=== PATIENT | female | born 1995 | race Caucasian/White ===

== ENCOUNTER 2016-11-07 15:41 | Emergency (ER) | payer SELFPAY ==
[~2016-11-07] VITALS: Ht 160 cm; Wt 55.0 kg
[2016-11-07 15:46] VITALS: Ht 160 cm; Wt 55.0 kg
[2016-11-07] MEDS ORDERED: CEFTRIAXONE 250 MG INJ IM ONE (17:00)
[2016-11-07 17:49] LABS: ADD UMIC YES; URINE BILIRUBIN (Dip) NEGATIVE (NEGATIVE); URINE BLOOD (Dip) TRACE (NEGATIVE); URINE COLOR LT. YELLOW (YELLOW); URINE GLUCOSE (Dip) NEGATIVE (NEGATIVE); URINE KETONES (Dip) NEGATIVE (NEGATIVE); URINE LEUKOCYTE ESTERASE (Dip) NEGATIVE (NEGATIVE); URINE NITRITE (Dip) NEGATIVE (NEGATIVE); URINE TOTAL PROTEIN (Dip) NEGATIVE (NEGATIVE); URINE UROBILINOGEN (Dip) 0.2 E.U./dL (0.1-1.0)
[2016-11-07 17:56] LABS: BACTERIA,URINE FEW; MUCUS,URINE MODERATE; SQUAMOUS EPITHELIAL CELL,UR FEW; URINE RBCS 0-2 /HPF (0)
[2016-11-07] MEDS ORDERED: LIDOCAINE 2% VISC 15 ML CUP PO ONE (18:00)
[2016-11-07] MEDS ORDERED: LIDO5OI35 TP (18:04)
[2016-11-07] MEDS ORDERED: DOXY100T20 PO (18:06)
[2016-11-07] MEDS ORDERED: METR500T PO (18:06)
--- NOTE | 2016-11-07 18:21 | ERD ---
ER Documentation Chief Complaint Date/Time DATE: 11/07/16 TIME: 18:08 Chief Complaint VAGINAL PAIN WITH ODOR AND DISCHARGE, [employer] HPI 21-year-old female patient who is currently working in the adult porn industry presents to the ED complaining of vaginal pain that started 3 days ago. Reports that she is sexually active and the last time she had sexual intercourse was 4 days ago. States that she also tried this new lubricant called demetriorichard annette 4 days ago and feels like the outside of her vagina hurts. Reports it feels like an infection. Reports it is itchy. States that she is a G1 A1. She is currently taking Loestrin. States that she has not had her menses for 1 year but denies being . States that she gets tested every 12 days for HIV, hepatitis and STDs. States that she went to [place] and had an ultrasound done which was negative for an ovarian abscess or torsion. States that the work up was negative but she is still having pain. Denies any abdominal pain, nausea, vomiting, vaginal bleeding, chest pain, shortness of breath, melena, hematemesis, bloody stools. ROS All systems reviewed and are negative except as per history of present illness. Medications Home Meds Active Scripts Doxycycline Hyclate* (Doxycycline Hyclate*) 100 Mg Tablet.dr, 100 MG PO BID for 14 Days, TAB Prov:ORION TANNER PA-C 11/07/16 Metronidazole* (Flagyl*) 500 Mg Tablet, 500 MG PO BID for 14 Days, TAB Prov:ORION TANNER PA-C 11/07/16 Lidocaine (LIDOCAINE) 35.44 Gm Oint...g., 35.44 GM TP ONCE, #1 TUB Prov:ORION TANNER PA-C 11/07/16 Allergies Allergies: Uncoded Allergies: PCN (Allergy, Unknown, 11/07/16) SULFA (Allergy, Unknown, 11/07/16) PMhx/Soc Medical and Surgical Hx: pt denies Medical Hx, pt denies Surgical Hx Hx Alcohol Use: No Hx Substance Use: No Hx Tobacco Use: No Physical Exam Vitals Vital Signs Date Time Temp Pulse Resp B/P Pulse Ox O2 Delivery O2 Flow Rate FiO2 11/07/16 15:46 97.8 100 18 129/82 100 Physical Exam Const: Cvq-lum-jwbaqqlyn, well-nourished. In no acute distress. Head: Atraumatic, normocephalic Eyes: Normal Conjunctiva without injection. No purulent discharge. ENT: Normal external ear, nose. Moist oropharynx without tonsillar exudates. Non -erythematous pharynx. Uvula midline. No drooling. No trismus. Neck: No cervical midline tenderness. Full range of motion. No meningismus. No cervical lymphadenopathy. No JVD. Resp: Clear to auscultation bilaterally. No wheezing, rhonchi, rales, or crackles. No accessory muscle use. No retractions. Cardio: Regular rate and rhythm. No murmurs, rubs or gallops. Abd: Soft, nontender, non distended. Normal bowel sounds. No palpable masses. No rebound tenderness. No guarding. Negative McBurney's point. Negative psoas sign. Negative obturator sign. : See exam in MDM. Skin: No petechiae or rashes Back: No midline tenderness. No CVA tenderness. Ext: No cyanosis, or edema. Neur: Awake and alert. Normal gait. Normal coordination. Psych: Normal Mood and Affect Results 24 hrs Laboratory Tests Test 11/07/16 17:00 Urine Color LT. YELLOW Urine Clarity CLEAR Urine pH 5.5 Urine Specific [place] >=1.030 Urine Ketones NEGATIVE Urine Nitrite NEGATIVE Urine Bilirubin NEGATIVE Urine Urobilinogen 0.2 E.U./dL Urine Leukocyte Esterase NEGATIVE Urine Microscopic RBC 0-2/HPF Urine Microscopic WBC 0-2/HPF Urine Squamous Epithelial Cells FEW Urine Bacteria FEW Urine Mucus MODERATE Urine Hemoglobin TRACE Urine Glucose NEGATIVE% Urine Total Protein NEGATIVE Current Medications Medications (Trade) Dose Ordered Sig/Sandeep Route PRN Reason Start Time Stop Time Status Last Admin Dose Admin Ceftriaxone Sodium (Rocephin) 250 mg ONCE ONCE IM 11/07/16 17:00 11/07/16 17:01 DC 11/07/16 17:03 Lidocaine (Xylocaine (Viscous)) 15 ml ONCE ONCE PO 11/07/16 18:00 11/07/16 18:01 DC Procedures/[facility] This is a 21-year-old female patient who is a G1 A1 presents to the ED complaining of vaginal pain that started 3 days ago. Patient is afebrile and nontoxic-appearing. Patient has normal vital signs. Patient gave consent to do a pelvic exam. Urinalysis is negative for any leukocyte esterase, hematuria , nitrites. Negative urine . Pelvic Exam: Embedded Firmware Engineer present Abdomen: [Nontender] External Genitalia: [1 cm vertical skin tears noted at the Posterior Labial Commissure] Speculum: [Normal vaginal mucosa, whitish cervical discharge noted] Bimanual: [No adnexal masses or tenderness, CMT noted, Chandelier Sign noted] Pending the wet mount, this case has been signed out to my colleague, Kathi Lee PA-C. I instructed patient that the gonorrhea and Chlamydia results would come back in about 2-3 days. Patient states that she would still like to be treated for for possible pelvic inflammatory disease. Patient was treated here in the ED with ceftriaxone 250 mg IM. Patient will also receive outpatient antibiotics. No indication for a pelvic ultrasound at this time as patient already received one at [facility]. Patient states that it was negative for any acute findings. Low suspicion for urinary tract infection, pyelonephritis. Low suspicion for ectopic , sepsis, appendicitis, ovarian torsion, tubo- ovarian abscess, surgical abdomen, or other emergent conditions. Patient was educated that there is a risk for threatened . Discharge medications: Doxycycline, Metronidazole, Lidocaine cream to be applied externally. Follow up with primary care physician in 1-2 days for a referral to [facility]. Strictly instructed patient to avoid sexual intercourse. Strictly instructed patient to avoid the sun while taking Doxycycline and taking alcohol while taking Metronidazole. Instructed patient to return to the ED sooner for any worsening symptoms. Patient's questions were answered. Patient understood and agreed with discharge plan. Patient discharged stable. Departure Diagnosis: Primary Impression: Vaginal pain Additional Impression: Skin tear Patient Instructions: Preventing Vaginitis, What Is Pelvic Inflammatory Disease ? Referrals: COMMUNITY CLINICS YOU HAVE RECEIVED A MEDICAL SCREENING EXAM AND THE RESULTS INDICATE THAT YOU DO NOT HAVE A CONDITION THAT REQUIRES URGENT TREATMENT IN THE EMERGENCY DEPARTMENT. FURTHER EVALUATION AND TREATMENT OF YOUR CONDITION CAN WAIT UNTIL YOU ARE SEEN IN YOUR DOCTORS OFFICE WITHIN THE NEXT 1-2 DAYS. IT IS YOUR RESPONSIBILITY TO MAKE AN APPOINTMENT FOR FOLOW-UP CARE. IF YOU HAVE A PRIMARY DOCTOR --you should call your primary doctor and schedule an appointment IF YOU DO NOT HAVE A PRIMARY DOCTOR YOU CAN CALL OUR PHYSICIAN REFERRAL HOTLINE AT IF YOU CAN NOT AFFORD TO SEE A PHYSICIAN YOU CAN CHOSE FROM THE FOLLOWING [facility] [address] [facility] [address] [facility] [address] [facility] [address] [facility] [phone] [facility]. [facility] [address] [facility]. [facility] YOU HAVE RECEIVED A MEDICAL SCREENING EXAM AND THE RESULTS INDICATE THAT YOU DO NOT HAVE A CONDITION THAT REQUIRES URGENT TREATMENT IN THE EMERGENCY DEPARTMENT. FURTHER EVALUATION AND TREATMENT OF YOUR CONDITION CAN WAIT UNTIL YOU ARE SEEN IN YOUR DOCTORS OFFICE WITHIN THE NEXT 1-2 DAYS. IT IS YOUR RESPONSIBILITY TO MAKE AN APPOINTMENT FOR FOLOW-UP CARE. IF YOU HAVE A PRIMARY DOCTOR --you should call your primary doctor and schedule and appointment IF YOU DO NOT HAVE A PRIMARY DOCTOR YOU CAN CALL OUR PHYSICIAN REFERRAL HOTLINE AT . IF YOU CAN NOT AFFORD TO SEE A PHYSICIAN YOU CAN CHOSE FROM THE FOLLOWING [facility] [address] [place] [address] [facility] [address] [place] [address] [facility] [address] [place] [address] [employer] [facility] [place] [address] [facility] [address] [place], [place] [phone] OFFICE FAX JEANA GONZALES [address] [place], [place] [phone] LEDEZMA HERNDON [address] [place], [place] [phone] DANIELLE CHÁVEZ [address] [facility], [address] [address] [address] [address] [facility] [place], [place] [phone] [facility] [address] [place], [place] [id number] [address] [facility] [id number] - DR FIGUEROA, ELIECER [address], [facility] [phone] FLANAGAN, EITAN [address] [facility]. [address], [facility] [phone] THORNE, [facility] [address] [place] [address] [facility] Hours: 8:00 am - 5:00 pm Additional Instructions: Call your primary care doctor TOMORROW for an appointment during the next 2-3 days for a referral to [facility].See the doctor sooner or return here if your condition worsens before your appointment time. ORION TANNER PA-C November 07, 2016 18:19
[2016-11-07 19:00] VITALS: BP 128/78; PULSE 75; RESP 18; TEMP 97.8
--- NOTE | 2016-11-08 02:12 | EN ---
Date/Time of Note Date/Time of Note DATE: 11/08/16 TIME: 02:11 ER Progress Note This patient was signed out to me by Perri Reese PA-C pending results of a vaginal wet mount. Wet mount shows no evidence of trichomonas, clue cells. There is rare yeast. Low suspicion for Trichomonas, BV. Patient did not want to wait for the results of the wet mount and left prior to receiving her test results. Patient will be treated as previously prescribed by Evelia Reese for PID and BV prophylactically ALAN MCBRIDE PA-C November 08, 2016 02:12
== END 2016-11-07 19:00 | disposition home or self-care (01) ==
LOC: FTE 15:41
DX: R10.2 Pelvic and perineal pain (principal); S31.41XA Laceration without foreign body of vagina and vulva, initial encounter; X58.XXXA Exposure to other specified factors, initial encounter; Y92.9 Unspecified place or not applicable
CPT/HCPCS: 81001; 87210; 87591; 96372; 99284; J0696; 81003